=== PATIENT | male | born 1975 | race Two or more races ===

== ENCOUNTER 2019-10-06 12:21 | Emergency (ER) | payer SELFPAY ==
--- NOTE | 2019-10-06 13:55 | ER Document Report ---
ED Medical Screen (RME) - General Chief Complaint: Diarrhea Stated Complaint: DIAHERRA/FEVER/CHILLS Time Seen by Provider: 10/06/19 13:47 Mode of Arrival: Ambulatory Information source: Patient Notes: Patient presents complaining of diarrhea for the past 2 days although none today. Patient states that he has had abdominal tenderness that radiates to the back area for the past 3 days. Patient denies any nausea or vomiting. No urinary symptoms. I have greeted and performed a rapid initial assessment of this patient. A comprehensive ED assessment and evaluation of the patient, analysis of test results and completion of the medical decision making process will be conducted by additional ED providers. TRAVEL OUTSIDE OF THE [place] IN LAST 30 DAYS: No Past Medical History - Social History Chew tobacco use (# tins/day): No Frequency of alcohol use: Social Drug Abuse: None Physical Exam - Vital signs Vitals: Temp Pulse Resp BP Pulse Ox 98.2 F 81 16 104/88 H 99 10/06/19 12:26 10/06/19 12:26 10/06/19 12:26 10/06/19 12:26 10/06/19 12:26 - General General appearance: Appears well, Alert Notes: Generalized abdominal tenderness Course - Vital Signs Vital signs: Temp Pulse Resp BP Pulse Ox 98.2 F 81 16 104/88 H 99 10/06/19 13:47 10/06/19 12:26 10/06/19 13:47 10/06/19 12:26 10/06/19 13:47
[2019-10-06 14:47] LABS: ABSOLUTE EOSINOPHILS # (AUTO) 0.1 10^3/uL (0.0-0.6); ABSOLUTE LYMPHOCYTES (AUTO) 2.8 10^3/uL (0.5-4.7); ABSOLUTE MONOCYTES (AUTO) 0.7 10^3/uL (0.1-1.4); ABSOLUTE NEUT (AUTO) 2.9 10^3/uL (1.7-8.2); BASOPHILS % (AUTO) 0.3 % (0-2); EOSINOPHILS % (AUTO) 1.7 % (0-6); HEMATOCRIT 43.6 % (37.9-51.0); HEMOGLOBIN 14.7 g/dL (13.5-17.0); LYMPHOCYTES % (AUTO) 42.8 % (13-45); MEAN CORPUSCULAR HEMOGLOBIN 30.4 pg (27.0-33.4); MEAN CORPUSCULAR HGB CONC 33.6 g/dL (32.0-36.0); MEAN CORPUSCULAR VOLUME 90 fl (80-97); MONOCYTES % (AUTO) 11.2 % (3-13); PLATELET COUNT 362 10^3/uL (150-450); RED BLOOD COUNT 4.83 10^6/uL (4.35-5.55); RED CELL DISTRIBUTION WIDTH 13.6 % (11.5-14.0); TOTAL CELLS COUNTED % (AUTO) 100 %; WHITE BLOOD COUNT 6.6 10^3/uL (4.0-10.5)
[2019-10-06 14:56] LABS: APPEARANCE,URINE CLEAR; BILIRUBIN,URINE NEGATIVE (NEGATIVE); COLOR,URINE YELLOW; GLUCOSE, URINE NEGATIVE (NEGATIVE); KETONES,URINE NEGATIVE (NEGATIVE); LEUKOCYTE ESTERASE,URINE NEGATIVE (NEGATIVE); NITRITE,URINE NEGATIVE (NEGATIVE); PROTEIN,URINE NEGATIVE (NEGATIVE); URINE SPECIFIC GRAVITY 1.014; UROBILINOGEN,URINE NEGATIVE mg/dL (<2.0)
--- NOTE | 2019-10-06 14:59 | RADIOLOGY REPORT (SQ) ---
EXAM DESCRIPTION: ACUTE ABDOMEN SERIES COMPLETED DATE/TIME: 10/06/2019 2:42 pm REASON FOR STUDY: abd pain COMPARISON: None. NUMBER OF VIEWS: Three views. TECHNIQUE: Frontal chest, supine abdomen and upright/decubitus abdomen radiographic images acquired. LIMITATIONS: None. FINDINGS: CHEST: Lungs clear of infiltrates. FREE AIR: None. No abnormal gas collections. BOWEL GAS PATTERN: Gas pattern is nonobstructive. There is large amount of stool throughout the colo n. CALCIFICATIONS: No suspicious calcifications. HARDWARE: None in the abdomen. SOFT TISSUES: No gross mass or suggestion of organomegaly. BONES: No acute fracture. No worrisome bone lesions. OTHER: No other significant finding. IMPRESSION: Moderate constipation. No obstruction. TECHNICAL DOCUMENTATION: JOB ID: [id number] Managed by [employer]- All Rights Reserved Reading location - IP/workstation name: [email or web address]
[2019-10-06 15:08] LABS: ALBUMIN 3.9 g/dL (3.5-5.0); ALKALINE PHOSPHATASE 74 U/L (38-126); ANION GAP 9 (5-19); ASPARTATE AMINO TRANSFERASE 51 U/L (17-59); BILIRUBIN,DIRECT 0.1 mg/dL (0.0-0.4); BILIRUBIN,TOTAL 0.3 mg/dL (0.2-1.3); BLOOD UREA NITROGEN 13 mg/dL (7-20); CALCIUM 9.2 mg/dL (8.4-10.2); CARBON DIOXIDE 27 mmol/L (22-30); CHLORIDE 106 mmol/L (98-107); GLUCOSE 83 mg/dL (75-110); POTASSIUM 4.9 mmol/L (3.6-5.0); TOTAL PROTEIN 7.6 g/dL (6.3-8.2)
--- NOTE | 2019-10-06 17:18 | ER Document Report ---
ED GI/ - General Chief Complaint: Diarrhea Stated Complaint: DIAHERRA/FEVER/CHILLS Time Seen by Provider: 10/06/19 13:47 Primary Care Provider: [facility] [Provider Group] - Follow up in 1 week APARNA GIBSON MD [ACTIVE STAFF] - Follow up in 1 week (go GI follow up) Mode of Arrival: Ambulatory TRAVEL OUTSIDE OF THE [place] IN LAST 30 DAYS: No - HPI Notes: 10/06/19 17:22 44-year-old male to the emergency department with complaints of nausea, d iarrhea, subjective fever for the past 2 to 3 days. Patient is predominantly Polish-speaking but his significant other translates for him. She states that he started to have diarrhea about 3 days ago and it has been profuse. He had several episodes yesterday and the day before but the diarrhea has eased off a little bit since then. He continues to have nausea with the diarrhea but no vomiting. They state that he had a fever last night but did not measure it. They state that his skin felt hot. He has not recently been traveling. He has not recently been on antibiotics. He has not recently changed his diet. He has not recently been exposed to anybody with nausea vomiting and diarrhea. He states that his pain is all over his belly. He denies history of diverticulitis or any sort of infection in his abdomen before. Past Medical History - General Information source: Patient - Social History Smoking Status: Current Every Day Smoker Chew tobacco use (# tins/day): No Frequency of alcohol use: Social Drug Abuse: None Lives with: Family Family History: Reviewed & Not Pertinent Patient has suicidal ideation: No Patient has homicidal ideation: No Review of Systems - Review of Systems Constitutional: Fever. denies: Chills EENT: No symptoms reported Cardiovascular: denies: Chest pain, Palpitations, Heart racing, Syncope, Dizziness, Lightheaded Respiratory: denies: Cough, Short of breath Gastrointestinal: Abdominal pain, Diarrhea, Nausea. denies: Vomiting Genitourinary: No symptoms reported Male Genitourinary: No symptoms reported Musculoskeletal: No symptoms reported Skin: No symptoms reported Hematologic/Lymphatic: No symptoms reported Neurological/Psychological: No symptoms reported -: Yes All other systems reviewed and negative Physical Exam - Vital signs Vitals: Temp Pulse Resp BP Pulse Ox 98.2 F 81 16 104/88 H 99 10/06/19 12:26 10/06/19 12:26 10/06/19 12:26 10/06/19 12:26 10/06/19 12:26 Interpretation: Normal - General General appearance: Appears well, Alert In distress: None Notes: Nontoxic in appearance - HEENT Head: Normocephalic, Atraumatic Eyes: Normal Pupils: PERRL - Respiratory Respiratory status: No respiratory distress Chest status: Nontender Breath sounds: Normal. No: Rales, Rhonchi, Stridor, Wheezing Chest palpation: Normal - Cardiovascular Rhythm: Regular Heart sounds: Normal auscultation Murmur: No - Abdominal Inspection: Normal Distension: No distension Bowel sounds: Normal Tenderness: Tender - Mild tenderness to palpation to the epigastrium into the left lower quadrant. There is no guarding or rebound. Negative Arana's sign, negative McBurney's point. 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 No: Pronator drift Sensory: Normal - Psychological Associated symptoms: Normal affect, Normal mood - Skin Skin Temperature: Warm Skin Moisture: Dry Skin Color: Normal Course - Re-evaluation Re-evalutation: 10/06/19 Impression: diarrhea, abdominal pain. Noted lab work which is very reassuring. Patient has no leukocytosis or left shift. Noted electrolytes that are within normal limits as well as kidney function. Noted acute abdominal series that does not show an obstructive bowel gas pattern. There is suggestion of some moderate constipation but patient has been having diarrhea for the past 3 days so doubt that that is a constipation picture. Did offer further medication, fluids, CT study given the left lower quadrant abdominal pain however patient has declined further evaluation. He would like to go home and eat. I will send patient home with Marcos and Subhash. Patient agrees with the plan. Encouraged to return if any worsening symptoms. Will give GI and primary care follow-up. - Vital Signs Vital signs: Temp Pulse Resp BP Pulse Ox 98.2 F 81 16 104/88 H 99 10/06/19 13:47 10/06/19 12:26 10/06/19 13:47 10/06/19 12:26 10/06/19 13:47 - Laboratory Result Diagrams: 10/06/19 14:25 10/06/19 14:25 Laboratory results interpreted by me: 10/06/19 14:10 Urine Blood SMALL H - Diagnostic Test Radiology reviewed: Image reviewed, Reports reviewed Discharge - Discharge Clinical Impression: Generalized abdominal pain Diarrhea Qualifiers: Diarrhea type: unspecified type Qualified Code(s): R19.7 - Diarrhea, unspe cified Condition: Stable Disposition: HOME, SELF-CARE Instructions: Abdominal Pain ([facility]), Diarrhea, Nonspecific ([facility]) Additional Instructions: PUSH FLUIDS. TAKE MEDICINES PRESCRIBED. FOLLOW UP WITH PRIMARY CARE AND GI SPECIALIST. RETURN IF YOUR SYMPTOMS WORSEN. Prescriptions: Dicyclomine HCl [Bentyl 20 mg Tablet] 20 mg PO QID PRN #16 tablet PRN Reason: Ondansetron [Zofran Odt 4 mg Tablet] 1 - 2 tab PO Q4H PRN #15 tab.rapdis PRN Reason: For Nausea/Vomiting Referrals: [facility] [Provider Group] - Follow up in 1 week APARNA GIBSON MD [ACTIVE STAFF] - Follow up in 1 week (go GI follow up)
[2019-10-06 18:37] VITALS: BP 112/67
== END 2019-10-06 17:30 | disposition home or self-care (01) ==
LOC: ER 12:21
DX: R10.84 Generalized abdominal pain (principal); R19.7 Diarrhea, unspecified; R50.9 Fever, unspecified; F17.200 Nicotine dependence, unspecified, uncomplicated
CPT/HCPCS: 36415; 74022; 80053; 81001; 83690; 85025; 99284